=== PATIENT | male | born 1985 | race Hispanic/Latino ===

== ENCOUNTER 2019-09-10 09:54 | Emergency (ER) | payer BC ==
[~2019-09-10] VITALS: Ht 167.6 cm; Wt 102.1 kg
[2019-09-10] MEDS ORDERED: IBUPROFEN 600 MG TAB PO STA (10:18)
[2019-09-10 10:19] VITALS: BP 128/90
== END 2019-09-10 11:07 | disposition home or self-care (01) ==
LOC: ER 09:54
DX: R51 Headache (principal); J00 Acute nasopharyngitis [common cold]
CPT/HCPCS: 99282